=== PATIENT | male | born 1970 | race Caucasian/White ===

== ENCOUNTER 2024-05-28 13:27 | Emergency (ER) | payer OTHER ==
--- NOTE | 2024-05-28 14:36 | RAD REPORT ---
EXAM DESCRIPTION: US - Extremity Venous [facility] - 05/28/2024 2:12 pm CLINICAL HISTORY: pain, swelling, redness right lower leg COMPARISON: None. TECHNIQUE: Real-time sonographic evaluation of the right lower extremity deep venous system was perf ormed. FINDINGS: Normal compressibility, flow augmentation, phasic flow and spontaneous flow is identified in the right lower extremity deep venous system. No intraluminal filling defects seen. IMPRESSION: No DVT in the right lower extremity.
--- NOTE | 2024-05-28 17:14 | ER ---
Nurse's Notes [facility] Name: Shant Nieto Jr Age: 53 yrs Sex: Male : 1970 Arrival Date: 05/28/2024 Time: 13:27 Bed IW2 Private MD: Diagnosis: Cellulitis of right lower limb Presentation: 05/28 13:48 Chief complaint: Patient states: Right lower leg pain for 2 weeks, been at [place] with cellulitis, finished his abx yesterday. Concerned he may need more abx. 13:48 Method Of Arrival: Ambulatory [facility] 13:52 Coronavirus screen: Vaccine status: Patient reports being unvaccinated. Ebola Screen: nj1 Patient denies travel to an Ebola-affected area in the 21 days before illness onset. Initial Sepsis Screen: Does the patient meet any 2 criteria? HR > 90 bpm. No. Patient's initial sepsis screen is negative. Does the patient have a suspected source of infection? No. Patient's initial sepsis screen is negative. Risk Assessment: Do you want to hurt yourself or someone else? Patient reports no desire to harm self or others. Onset of symptoms was April 2024. 13:52 Acuity: PABLO 4 nj1 Triage Assessment: 13:57 General: Appears in no apparent distress. uncomfortable, Behavior is calm, cooperative, nj1 appropriate for age. Pain: Complains of pain in right leg Pain currently is 8 out of 10 on a pain scale. Neuro: Level of Consciousness is awake, alert, obeys commands, Oriented to person, place, time, situation. Cardiovascular: Patient's skin is warm and dry. Respiratory: Airway is patent Respiratory effort is even, unlabored. Historical: - Allergies: 13:55 No Known Allergies; nj1 - PMHx: 13:55 Hypertensive disorder; Emphysema; Myocardial infarction; Cerebrovascular accident; nj1 - Immunization history:: Client reports having NOT received the Covid vaccine. - Infectious Disease History:: Denies. - Social history:: Smoking status: Patient reports the use of cigarette tobacco products, smokes one-half pack cigarettes per day. Screenin:03 [facility] ED Fall Risk Assessment (Adult) History of falling in the last 3 months, ap3 including since admission No falls in past 3 months (0 pts) Confusion or Disorientation No (0 pts) Intoxicated or Sedated No (0 pts) Impaired Gait No (0 pts) Mobility Assist Device Used No (0 pt) Altered Elimination No (0 pt) Score/Fall Risk Level 0 - 2 = Low Risk Oriented to surroundings, Maintained a safe environment, Educated pt \T\ family on fall prevention, incl call for assistance when getting out of bed, Assessed \T\ reinforced patient's understanding of fall precautions, Provided non-skid footwear, Hourly rounding (assess needs \T\ fall precautionary measures) done, Used ambulatory aids as needed (educated on \T\ assisted with), Used gait belt as appropriate. Abuse screen: Denies threats or abuse. Nutritional screening: No deficits noted. Tuberculosis screening: No symptoms or risk factors identified. Vital Signs: 13:52 BP 122 / 81; Pulse 97; Resp 18; Temp 97.9(O); Pulse Ox 98% ; Weight 113.4 kg; Height 5 nj1 ft. 11 in. ; Pain 8/10; 13:52 Body Mass Index 34.87 (113.40 kg, 180.34 cm) nj1 13:52 Pain Scale: Adult [facility] ED Course: 13:31 Patient arrived in ED. mg5 13:36 Wnedy Ruano F[facility]-C [facility]. kb 13:37 Juan Pablo Madden MD is Attending Physician. kb 13:55 Triage completed. nj1 13:56 Arm band placed on left wrist. nj1 14:14 Extremity Venous [facility] In Process Unspecified. EDMS 15:04 Patient has correct armband on for positive identification. Provided Education on: ap3 discharge instructions. 15:04 No provider procedures requiring assistance completed. Patient did not have IV access ap3 during this emergency room visit. Administered Medications: No medications were administered Medication: 15:04 VIS not applicable for this client. ap3 Outcome: 14:54 Discharge ordered by MD. kb 15:04 Discharged to home ambulatory, ap3 15:04 Condition: good 15:04 Discharge instructions given to patient, Instructed on discharge instructions, follow up and referral plans. medication usage, Demonstrated understanding of instructions, follow-up care, medications, Prescriptions given X 1, 15:04 Patient left the ED. ap3 Signatures: Dispatcher [employer] EDOR Wendy Ruano FNP-C FNP-Ckb Prokisch, Amanda, RN RN ap3 Michela Whitfield RN RN nj1 Tracy Cook mg5 Corrections: (The following items were deleted from the chart) 13:57 13:52 BP 122 / 81; Pulse 97bpm; Resp 18bpm; Pulse Ox 98%; Temp 97.9F Oral; 113.4 kg; nj1 Height 5 ft. 11 in.; BMI: 34.8; nj1
--- NOTE | 2024-05-28 17:14 | EDPHYS ---
Physician Documentation [facility] Name: Shant Nieto Jr Age: 53 yrs Sex: Male : 1970 Arrival Date: 05/28/2024 Time: 13:27 Bed IW2 Private MD: ED Physician Juan Pablo Madden HPI: 05/28 15:08 This 53 yrs old Male presents to ER via Ambulatory with complaints of Foot Pain. kb 15:08 Pt is a 53 year old male who presents for pain and redness to right lower leg that kb initially started 2 weeks ago. Pt states he went to [place] and was admitted for 6 days. States he received multiple IV antibiotics and was discharged 6 days ago. States his symptoms have greatly improved, but he took his last doxycycline last night and still has slight redness and pain so he thought he may need more antibiotics. States his oral abx were for 5 days. States the pain is much better, this being the first day is able to apply pressure to walk. Historical: - Allergies: 13:55 No Known Allergies; nj1 - PMHx: 13:55 Hypertensive disorder; Emphysema; Myocardial infarction; Cerebrovascular accident; nj1 - Immunization history:: Client reports having NOT received the Covid vaccine. - Infectious Disease History:: Denies. - Social history:: Smoking status: Patient reports the use of cigarette tobacco products, smokes one-half pack cigarettes per day. ROS: 15:06 Constitutional: As per HPI kb Exam: 15:06 Constitutional: This is a well developed, well nourished patient who is awake, alert, kb and in no acute distress. Head/Face: Normocephalic, atraumatic. ENT: Moist Mucous membranes Cardiovascular: Regular rate Respiratory: Respirations even and unlabored. No increased work of breathing. Talking in full sentences Abdomen/GI: Soft, non-tender. No distention MS/ Extremity: Pulses equal, no cyanosis. Neurovascular intact. Full, normal range of motion. Neuro: Awake and alert, GCS 15, oriented to person, place, time, and situation. Moves all extremities. Normal gait. 15:06 Skin: erythema and pain to right lower extremity. Vital Signs: 13:52 BP 122 / 81; Pulse 97; Resp 18; Temp 97.9(O); Pulse Ox 98% ; Weight 113.4 kg; Height 5 nj1 ft. 11 in. ; Pain 8/10; 13:52 Body Mass Index 34.87 (113.40 kg, 180.34 cm) nj1 13:52 Pain Scale: Adult nj1 MDM: 13:37 Patient medically screened. kb 15:06 Differential diagnosis: cellulitis, dvt. Data reviewed: vital signs, nurses notes. Test kb considered but Not performed: Labs: cbc, cmp considered but pt is afebrile, nontoxic in appearance and symptoms have been improving. . External Records Reviewed: discharge paperwork from [place] admission reviewed. . Counseling: I had a detailed discussion with the patient and/or guardian regarding the historical points, exam findings, and any diagnostic results supporting the discharge/admit diagnosis, radiology results, the need for outpatient follow up, a family practitioner, to return to the emergency department if symptoms worsen or persist or if there are any questions or concerns that arise at home. 05/28 13:55 Order name: Extremity Venous [facility] Ltd; Complete Time: 14:38 EDMS Administered Medications: No medications were administered Disposition Summary: 05/28/24 14:54 Discharge Ordered Notes: Location: Home kb Condition: Stable kb Diagnosis - Cellulitis of right lower limb kb Followup: kb - With: Emergency Department - When: As needed - Reason: Worsening of condition Followup: kb - With: Private Physician - When: 2 - 3 days - Reason: Recheck today's complaints, Continuance of care, Re-evaluation by your physician Discharge Instructions: - Discharge Summary Sheet kb - Cellulitis, Adult, [id number] kb Forms: - Medication Reconciliation Form kb - Antibiotic Education kb - Prescription Opioid Use kb - Patient Portal Instructions kb - Leadership Thank You Letter kb Prescriptions: - Doxycycline Hyclate 100 mg Oral tablet - take 1 tablet ORAL route every 12 hours; 10 tablet; Refills: 0, Product kb Selection Permitted Signatures: Dispatcher [employer] Wendy Braxton FNP-C FNP-Michela Yoon, RN RN nj1
[2024-05-29 04:38] VITALS: BP 122/81; TEMP 97.9; O2SAT 98
== END 2024-05-28 15:04 | disposition home or self-care (01) ==
LOC: ER 13:27
DX: L03.115 Cellulitis of right lower limb (principal)
CPT/HCPCS: 93971